=== PATIENT | female | born 1980 | race African-American/Black ===

== ENCOUNTER 2024-08-13 13:03 | Inpatient (IN) | payer SELFPAY ==
[~2024-08-13] VITALS: Ht 160 cm; Wt 77.6 kg
[~2024-08-13 13:03] MED LIST: CEPH-569 PO; HYDR-3512 PO
[2024-08-13 14:33] LABS: CHLORIDE 105 mEq/L (98-107); POTASSIUM 3.8 mEq/L (3.5-5.1); SODIUM 138 mEq/L (136-145)
[2024-08-13 14:34] LABS: CALCIUM 9.6 mg/dL (8.7-10.4); CARBON DIOXIDE 27 mEq/L (21-32)
[2024-08-13 14:35] LABS: BASOPHILS % 0.8 % (0.0-2.0); EOSINOPHILS % 1.5 % (0.0-5.0); HEMATOCRIT. 38.5 % (36.0-48.0); HEMOGLOBIN. 12.6 g/dL (12.0-16.0); LYMPHOCYTES % 26.5 % (20.0-50.0); MEAN CORPUSCULAR HEMOGLOBIN 29.9 pg (28.0-32.0); MEAN CORPUSCULAR HGB CONC 32.7 g/dL (31.0-37.0); MEAN CORPUSCULAR VOLUME 91.5 fL (81.0-99.0); MEAN PLATELET VOLUME 8.1 fl (7.4-10.4); MONOCYTES % 7.1 % (2.0-8.0); NEUTROPHILS % 64.1 % (40.0-76.0); PLATELET 237 x1000/uL (130-400); RED BLOOD CELL COUNT 4.21 mill/uL (4.2-5.4); RED CELL DISTRIBUTION WIDTH 14.3 % (11.6-14.6); WHITE BLOOD COUNT 6.1 x1000/uL (4.5-11.0)
[2024-08-13 14:39] LABS: CREATININE 0.8 mg/dL (0.6-1.0); GLUCOSE 85 mg/dL (70-105); UREA NITROGEN BLOOD 15 mg/dL (9-23)
[2024-08-13 14:41] LABS: CLARITY URINE CLEAR (CLEAR); COLOR URINE YELLOW (YELLOW); GLUCOSE URINE NEGATIVE (NEGATIVE); KETONES URINE NEGATIVE (NEGATIVE); LEUKOCYTE ESTERASE URINE NEGATIVE (NEGATIVE); NITRITE URINE NEGATIVE (NEGATIVE); OCCULT BLOOD URINE NEGATIVE (NEGATIVE); PROTEIN URINE NEGATIVE (NEGATIVE); SPECIFIC GRAVITY URINE 1.021 (1.005-1.030); UROBILINOGEN URINE 0.2 E.U./dL (0.2-1.0)
[2024-08-13] MEDS: LABETALOL 5MG/ML 4ML INJ IV ONE ×3 (15:19→20:39)
[2024-08-13 22:00] VITALS: BP 155/85; PULSE 74; RESP 18; TEMP 36.33624; O2SAT 99
[2024-08-13] MEDS ORDERED: ONDANSETRON HCL 4MG/2ML INJ IV PRN (22:00)
[2024-08-13] MEDS ORDERED: IPRATROPIUM/ALBUTEROL 0.5-3(2.5)MG/3ML NEB HHN PRN (22:00)
[2024-08-13] MEDS ORDERED: ACETAMINOPHEN 325MG TABLET PO PRN ×2 (22:00)
[2024-08-13 22:52] LABS: HCG SCREEN NEGATIVE
[2024-08-13 23:00] VITALS: BP 155/93; PULSE 80; RESP 18; TEMP 36.6404
[2024-08-14 04:00] VITALS: BP 136/103; PULSE 76; RESP 19; TEMP 36.33624; O2SAT 99
[2024-08-14 06:20] LABS: CHLORIDE 106 mEq/L (98-107); POTASSIUM 3.6 mEq/L (3.5-5.1); SODIUM 139 mEq/L (136-145)
[2024-08-14 06:21] LABS: CALCIUM 9.3 mg/dL (8.7-10.4); CARBON DIOXIDE 26 mEq/L (21-32)
[2024-08-14 06:26] LABS: CREATININE 0.8 mg/dL (0.6-1.0); GLUCOSE 85 mg/dL (70-105); UREA NITROGEN BLOOD 13 mg/dL (9-23)
[2024-08-14 06:44] LABS: HEPATITIS B SURFACE ANTIGEN NEGATIVE (Negative)
[2024-08-14 06:50] LABS: BASOPHILS % 0.7 % (0.0-2.0); EOSINOPHILS % 1.9 % (0.0-5.0); HEMATOCRIT. 36.8 % (36.0-48.0); HEMOGLOBIN. 11.9 g/dL (12.0-16.0); LYMPHOCYTES % 26.2 % (20.0-50.0); MEAN CORPUSCULAR HEMOGLOBIN 29.5 pg (28.0-32.0); MEAN CORPUSCULAR HGB CONC 32.3 g/dL (31.0-37.0); MEAN CORPUSCULAR VOLUME 91.3 fL (81.0-99.0); MEAN PLATELET VOLUME 8.6 fl (7.4-10.4); MONOCYTES % 6.7 % (2.0-8.0); NEUTROPHILS % 64.5 % (40.0-76.0); PLATELET 205 x1000/uL (130-400); RED BLOOD CELL COUNT 4.03 mill/uL (4.2-5.4); RED CELL DISTRIBUTION WIDTH 14.2 % (11.6-14.6)
[2024-08-14 07:05] LABS: HEPATITIS C AB NON REACTIVE (Neg) (Negative)
[2024-08-14] MEDS: LABETALOL 5MG/ML 4ML INJ IV PRN (09:26)
[2024-08-14 12:00] VITALS: BP 170/97; PULSE 72; RESP 18; TEMP 36.89184; O2SAT 98
[2024-08-14] MEDS: AMLODIPINE 10MG TABLET PO SCH (12:39)
[2024-08-14 14:27] LABS: *AMPHETAMINES SCREEN URINE NEGATIVE (NEGATIVE); *BARBITURATES SCREEN URINE NEGATIVE (NEGATIVE); *BENZODIAZEPINES SCREEN URINE NEGATIVE (NEGATIVE); *COCAINE SCREEN URINE NEGATIVE (NEGATIVE); METHADONE URINE SCREEN NEGATIVE (NEGATIVE)
[2024-08-14 14:28] LABS: CANNABINOID URINE SCREEN PRESUMPTIVE POSITIVE (NEGATIVE); ECSTASY MDMA SCREEN URINE NEGATIVE (NEGATIVE); OPIATES URINE SCREEN NEGATIVE (NEGATIVE); PHENCYCLIDINE URINE SCREEN NEGATIVE (NEGATIVE)
[2024-08-14] MEDS ORDERED: NIFE-71 MT (14:51)
[2024-08-14] MEDS ORDERED: CLONIDINE 0.1MG TABLET PO PRN (15:00)
[2024-08-14 15:38] VITALS: BP 155/90; PULSE 75; TEMP 98.8; O2SAT 96
[2024-08-14 16:00] VITALS: BP 155/90; PULSE 75; RESP 18; TEMP 37.11408; O2SAT 96
== END 2024-08-14 17:18 | disposition home or self-care (01) | DRG 199 ==
LOC: ER 13:03 → EDBEDREQ 16:00 → 8WST 22:33
PROVIDERS: ADMIT Family Medicine Adult Medicine; ATTEND Family Medicine Adult Medicine
DX: I16.0 Hypertensive urgency (principal); E66.9 Obesity, unspecified; I10 Essential (primary) hypertension; F12.90 Cannabis use, unspecified, uncomplicated; Z88.2 Allergy status to sulfonamides; Z88.3 Allergy status to other anti-infective agents; Z68.30 Body mass index [BMI] 30.0-30.9, adult
CPT/HCPCS: 36415; 71045; 80048; 80305; 81003; 83735; 84703; 85025; 86705; 87340; 93005; 99285; J3490

== ENCOUNTER 2024-09-05 11:20 | Emergency (ER) | payer SELFPAY ==
[~2024-09-05] VITALS: Ht 160 cm; Wt 77.0 kg
[~2024-09-05 11:20] MED LIST changes: -CEPH-569 PO; -HYDR-3512 PO; +NIFE-71 MT
[2024-09-05 11:30] VITALS: O2SAT 100
[2024-09-05 11:31] VITALS: BP 145/93; PULSE 94; RESP 16; TEMP 98.6; O2SAT 100
== END 2024-09-05 15:19 | disposition left against medical advice (07) ==
LOC: ER 11:20
DX: R07.89 Other chest pain (principal); Z53.21 Procedure and treatment not carried out due to patient leaving prior to being seen by health care provider
CPT/HCPCS: 93005; 99283